=== PATIENT | male | born 1985 | race African-American/Black ===

== ENCOUNTER 2018-06-04 14:49 | Inpatient (IN) | payer OTHER ==
[2018-06-04 17:45] VITALS: BMI 22.7
--- NOTE | 2018-06-04 18:20 | HP ---
CIWA Score Nausea/Vomitin-No Nausea/No Vomiting Muscle Tremors: 1-None Visible, but [place] Anxiety: 3 Agitation: 2 Paroxysmal Sweats: 2 Orientation: 0-Oriented Tacttile Disturbances: 1-Very Mild Itch/Numbness Auditory Disturbances: 0-None Visual Disturbances: 0-None Headache: 0-None Present CIWA-Ar Total Score: 9 - Admission Criteria OASAS Guidelines: Admission for Medically Managed Detox: Requires at least one of the followin. CIWA greater than 12 2. Seizures within the past 24 hours 3. Delirium tremens within the past 24 hours 4. Hallucinations within the past 24 hours 5. Acute intervention needed for co occurring medical disorder 6. Acute intervention needed for co occurring psychiatric disorder 7. Severe withdrawal that cannot be handled at a lower level of care (continued vomiting, continued diarrhea, abnormal vital signs) requiring intravenous medication and/or fluids 8. Patient presents the following: Acute intervention needed for co-occurring med or psych disorder Admission Criteria Met: Admission criteria met Admission ROS S - HPI Chief Complaint: " I am tire and I want to really do this" Allergies/Adverse Reactions: Allergies Allergy/AdvReac Type Severity Reaction Status Date / Time No Known Allergies Allergy Verified 06/04/18 17:34 History of Present Illness: 33 yo male with hx of alcohol, cocaine, marijuana, nicotine dependence is here seeking detox, self referred. Reports last detox [facility] 2008. Reports drinking has worsen in the past "couple of months " currently has been [id number] x 40 oz beers + 12 - 13 shot of vodka. Reports unable to take HARRT therapy d/t selling his mediations for "drugs." PMHX: HIV , Anemia Denies psyc hx. Denies hx of seizures or blackouts Denies SI / HI Exam Limitations: No Limitations - Ebola screening Have you traveled outside of the country in the last 21 days: No (N) Have you had contact with anyone from an Ebola affected area: No Do you have a fever: No - Review of Systems Constitutional: Chills, Changes in sleep (no sleep x 3 days) EENT: reports: No Symptoms Reported Respiratory: reports: No Symptoms reported Cardiac: reports: No Symptoms Reported GI: reports: Poor Appetite, Poor Fluid Intake : reports: No Symptoms Reported Musculoskeletal: reports: Back Pain Integumentary: reports: Dryness Neuro: reports: Weakness Endocrine: reports: Increased Thirst Hematology: reports: See HPI, Anemia Psychiatric: reports: Orientated x3, Agitated Other Systems: Reviewed and Negative Patient History - Patient Medical History Hx Anemia: Yes Hx Asthma: No Hx Chronic Obstructive Pulmonary Disease (COPD): No Hx Cancer: No Hx Cardiac Disorders: No Hx Congestive Heart Failure: No Hx Hypertension: No Hx Hypercholesterolemia: No Hx Pacemaker: No HX Cerebrovascular Accident: No Hx Seizures: No Hx Dementia: No Hx Diabetes: No Hx Gastrointestinal Disorders: No Hx Sexually Transmitted Disorders: No Hx Renal Disease (ESRD): Yes (One kidney, kidney disease? ) Hx Thyroid Disease: No Hx Human Immunodeficiency Virus (HIV): Yes (born with HIV ) Hx Hepatitis C: No Hx Depression: No Hx Suicide Attempt: No Hx Bipolar Disorder: No Hx Schizophrenia: No - Patient Surgical History Past Surgical History: No - PPD History Previous Implant?: No Documented Results: Negative w/o proof PPD to be Administered?: Yes - Smoking Cessation Smoking history: Current every day smoker Aproximately how many cigarettes per day: 20 Hx Chewing Tobacco Use: No Initiated information on smoking cessation: Yes 'Breaking Loose' booklet given: 06/04/18 - Substance & Tx. History Hx Alcohol Use: Yes Hx Substance Use: Yes Substance Use Type: Alcohol, Cocaine, Marijuana Hx Substance Use Treatment: Yes (Last detox [facility] 2008) - Substances abused Alcohol Substance route: Oral Frequency: 3-6 times per week Amount used: 10 x 40 oz beers + 12 - 13 shot of vodka Age of first use: 19 (been drinking this amount "months ago") Date of last use: 06/04/18 Cocaine Substance route: Inhalation Frequency: 3-6 times per week Amount used: 4 bags or more Age of first use: 19 Date of last use: 06/02/18 Marijuana/Hashish Substance route: Smoking Frequency: Daily Amount used: ' a lot' 50 to 60 dollars worth Age of first use: 19 Date of last use: 06/02/18 Family Disease History - Family Disease History Family Disease History: Diabetes: Grandparent (, CKD, dialysis), Other: Grandparent Admission Physical Exam BHS - Vital Signs Vital Signs: Vital Signs - 24 hr 06/04/18 17:33 Temperature 99.5 F Pulse Rate 98 H Respiratory 20 Rate Blood Pressure 116/76 - Physical General Appearance: Yes: Disheveled, Thin, Irritable, Anxious HEENTM: Yes: EOMI, Hearing grossly Normal, Normal ENT Inspection, Pharynx Normal , Tm's normal, Other (cheilitis) Respiratory: Yes: Chest Non-Tender, Lungs Clear, Normal Breath Sounds, No Respiratory Distress, No Accessory Muscle Use Neck: Yes: Within Normal Limits Breast: Yes: Breast Exam Deferred Cardiology: Yes: Regular Rhythm, Regular Rate Abdominal: Yes: Normal Bowel Sounds, Non Tender, Flat, Soft Genitourinary: Yes: Within Normal Limits Back: Yes: Normal Inspection Musculoskeletal: Yes: full range of Motion, Gait Steady, Pelvis Stable, Back pain Extremities: Yes: Normal Capillary Refill, Normal Inspection, Normal Range of Motion, Non-Tender 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, Fully Oriented, Alert, Motor Strength 5/5, Depressed Affect Integumentary: Yes: Normal Color, Warm, Pale, Diaphoresis Lymphatic: Yes: Within Normal Limits - Diagnostic (1) Alcohol dependence with uncomplicated withdrawal Current Visit: Yes Status: Acute (2) Nicotine dependence Current Visit: Yes Status: Acute (3) Cocaine dependence Current Visit: Yes Status: Acute Qualifiers: Substance use status: uncomplicated Qualified Code(s): F14.20 - Cocaine dependence, uncomplicated (4) Human immunodeficiency virus (HIV) disease Current Visit: Yes Status: Chronic Cleared for Admission [facility] - Detox or Rehab [facility] Level of Care: Medically Managed (ATIVAN) Breathalyzer - Breathalyzer Breathalyzer: 0 Urine Drug Screen - Test Device Lot number: [id number] Expiration date: 05/25/19 - Control Is test valid?: Yes - Results Drug screen NEGATIVE: No Urine drug screen results: THC-Marijuana, HARRY-Cocaine Inpatient Rehab Admission - Rehab Decision to Admit Inpatient rehab admission?: No
[2018-06-04] MEDS ORDERED: ACETAMINOPHEN 325 MG TABLET (FP) PO PRN (18:38)
[2018-06-04] MEDS ORDERED: BISMUTH SUBSALICYLATE 524 MG/30 ML UD PO PRN (18:38)
[2018-06-04] MEDS ORDERED: MAG HYDROX/AL HYDROX/SIMETH 30 ML UNIT-DOSE CUP PO PRN (18:38)
[2018-06-04] MEDS ORDERED: MENTHOL/PHENOL 1 EACH UD MM PRN (18:38)
[2018-06-04] MEDS ORDERED: NICOTINE POLACRILEX 2 MG GUM BUC PRN (18:38)
[2018-06-04] MEDS ORDERED: MAGNESIUM CITRATE 300 ML BOTTLE PO PRN (18:38)
[2018-06-04] MEDS ORDERED: hydrOXYzine PAMOATE 25 MG CAPSULE (FP) PO PRN (18:38)
[2018-06-04] MEDS ORDERED: LORazepam 1 MG TABLET PO PRN (18:38)
[2018-06-04] MEDS ORDERED: MELATONIN 5 MG TABLETS PO PRN (18:38)
[2018-06-04] MEDS ORDERED: METHOCARBAMOL 500 MG TABLET PO PRN (18:38)
[2018-06-04] MEDS ORDERED: IBUPROFEN 400 MG TABLET (FP) PO PRN (18:38)
[2018-06-04] MEDS ORDERED: MAGNESIUM HYDROX 2400MG/30ML ORAL SUSPENSION 30 ML CUP PO PRN (18:38)
[2018-06-04] MEDS: THIAMINE HCL 100 MG TABLET (FP) PO SCH (22:48)
[2018-06-04] MEDS: LORazepam 2 MG TABLET PO SCH (22:48)
[2018-06-05] MEDS: LORazepam 2 MG TABLET PO SCH ×3 (05:30→18:33)
[2018-06-05] MEDS: PRENATAL VITAMINS W/ FOLIC ACID TABLET (FP) PO SCH (10:15)
[2018-06-05] MEDS: NICOTINE 21 MG/24 HOURS TOPICAL PATCH TD SCH (10:16)
[2018-06-05 10:20] LABS: HEMATOCRIT 24.4 % (35.4-49); HEMOGLOBIN 8.4 GM/dL (11.7-16.9); MCHC 34.4 g/dl (32.0-35.9); MEAN PLT VOLUME 9.7 fl (7.5-11.1); PLATELET COUNT 183 K/MM3 (134-434); RBC 2.46 M/mm3 (4.00-5.60); RDW 13.2 % (11.9-15.9); WHITE BLOOD COUNT 3.7 K/mm3 (4.0-10.0)
[2018-06-05 10:21] LABS: ALBUMIN 2.6 g/dl (3.4-5.0); ALK PHOS 85 U/L (45-117); ANION GAP 5 MMOL/L (8-16); BILIRUBIN,TOTAL 0.5 mg/dL (0.2-1); BLOOD UREA NITROGEN 22 mg/dL (7-18); CHLORIDE 108 mmol/L (98-107); CO2 27 mmol/L (21-32); CREATININE 1.8 mg/dL (0.55-1.3); GLUCOSE,RANDOM 77 mg/dL (74-106); POTASSIUM 4.6 mmol/L (3.5-5.1); SGOT/AST 39 U/L (15-37); SGPT/ALT 19 U/L (13-61); SODIUM 139 mmol/L (136-145); TOT PROT 8.3 g/dl (6.4-8.2)
[2018-06-05] MEDS: ACETAMINOPHEN 325 MG TABLET (FP) PO PRN (11:51)
--- NOTE | 2018-06-05 13:54 | PN ---
S CIWA - CIWA Score Nausea/Vomitin-Mild Nausea/No Vomiting Muscle Tremors: 2 Anxiety: 1-Mildly Anxious Agitation: 2 Paroxysmal Sweats: 1-Minimal Palms Moist Orientation: 1-Uncertain about Date Tacttile Disturbances: 0-None Auditory Disturbances: 0-None Visual Disturbances: 0-None Headache: 0-None Present CIWA-Ar Total Score: 8 BHS Progress Note (SOAP) Subjective: tremor restlessness trouble sleep at night Objective: 06/05/18 13:53 Vital Signs Temperature 98.1 F 06/05/18 09:11 Pulse Rate 96 H 06/05/18 09:11 Respiratory Rate 16 06/05/18 09:11 Blood Pressure 120/74 06/05/18 09:11 O2 Sat by Pulse Oximetry (%) Laboratory Last Values WBC 3.7 K/mm3 (4.0-10.0) L 06/05/18 07:00 RBC 2.46 M/mm3 (4.00-5.60) L 06/05/18 07:00 Hgb 8.4 GM/dL (11.7-16.9) L 06/05/18 07:00 Hct 24.4 % (35.4-49) L 06/05/18 07:00 MCV 99.0 fl (80-96) H 06/05/18 07:00 MCH 34.0 pg (25.7-33.7) H 06/05/18 07:00 MCHC 34.4 g/dl (32.0-35.9) 06/05/18 07:00 RDW 13.2 % (11.9-15.9) 06/05/18 07:00 Plt Count 183 K/MM3 (134-434) 06/05/18 07:00 MPV 9.7 fl (7.5-11.1) 06/05/18 07:00 Sodium 139 mmol/L (136-145) 06/05/18 07:00 Potassium 4.6 mmol/L (3.5-5.1) 06/05/18 07:00 Chloride 108 mmol/L (98-107) H 06/05/18 07:00 Carbon Dioxide 27 mmol/L (21-32) 06/05/18 07:00 Anion Gap 5 MMOL/L (8-16) L 06/05/18 07:00 BUN 22 mg/dL (7-18) H 06/05/18 07:00 Creatinine 1.8 mg/dL (0.55-1.3) H 06/05/18 07:00 Creat Clearance w eGFR 44.23 (>60) 06/05/18 07:00 Random Glucose 77 mg/dL (74-106) 06/05/18 07:00 Calcium 8.0 mg/dL (8.5-10.1) L 06/05/18 07:00 Total Bilirubin 0.5 mg/dL (0.2-1) 06/05/18 07:00 AST 39 U/L (15-37) H 06/05/18 07:00 ALT 19 U/L (13-61) 06/05/18 07:00 Alkaline Phosphatase 85 U/L (45-117) 06/05/18 07:00 Total Protein 8.3 g/dl (6.4-8.2) H 06/05/18 07:00 Albumin 2.6 g/dl (3.4-5.0) L 06/05/18 07:00 RPR Titer Nonreactive (NONREACTIVE) 06/05/18 07:00 lab noted Assessment: 06/05/18 13:53 withdrawal sx Plan: continue detox
--- NOTE | 2018-06-05 16:39 | EKG ---
Test Reason : Blood Pressure : / mmHG Vent. Rate : 089 BPM Atrial Rate : 089 BPM P-R Int : 164 ms QRS Dur : 076 ms QT Int : 356 ms P-R-T Axes : 063 056 058 degrees QTc Int : 433 ms NORMAL SINUS RHYTHM NORMAL ECG NO PREVIOUS ECGS AVAILABLE Confirmed by CARIDAD GUZMAN, VLADIMIR ([id number]) on 06/05/2018 4:38:52 PM Referred By: Confirmed By:VLADIMIR MCLEAN MD
[2018-06-05] MEDS: LORazepam 1 MG TABLET PO SCH (22:38)
[2018-06-05] MEDS: THIAMINE HCL 100 MG TABLET (FP) PO SCH (22:38)
[2018-06-06] MEDS: LORazepam 1 MG TABLET PO SCH ×3 (06:21→17:39)
[2018-06-06] MEDS: PRENATAL VITAMINS W/ FOLIC ACID TABLET (FP) PO SCH (10:37)
[2018-06-06] MEDS: ACETAMINOPHEN 325 MG TABLET (FP) PO PRN (10:37)
[2018-06-06] MEDS: NICOTINE 21 MG/24 HOURS TOPICAL PATCH TD SCH (10:38)
--- NOTE | 2018-06-06 16:31 | PN ---
[facility] CIWA - CIWA Score Nausea/Vomitin-No Nausea/No Vomiting Muscle Tremors: 2 Anxiety: 3 Agitation: 3 Paroxysmal Sweats: 2 Orientation: 0-Oriented Tacttile Disturbances: 0-None Auditory Disturbances: 0-None Visual Disturbances: 0-None Headache: 0-None Present CIWA-Ar Total Score: 10 S Progress Note (SOAP) Subjective: Sweating, Anxious, Tremors, Interrupted Sleep. Objective: PATIENT A & O X 3, OBSERVED AMBULATING ON UNIT. IN NO ACUTE DISTRESS. 06/06/18 16:30 Vital Signs Temperature 98.0 F 06/06/18 13:37 Pulse Rate 102 H 06/06/18 13:37 Respiratory Rate 20 06/06/18 13:37 Blood Pressure 117/74 06/06/18 13:37 O2 Sat by Pulse Oximetry (%) Laboratory Tests 06/05/18 06/05/18 06/05/18 07:00 07:00 07:00 WBC 3.7 L RBC 2.46 L Hgb 8.4 L Hct 24.4 L MCV 99.0 H MCH 34.0 H MCHC 34.4 RDW 13.2 Plt Count 183 MPV 9.7 Sodium 139 Potassium 4.6 Chloride 108 H Carbon Dioxide 27 Anion Gap 5 L BUN 22 H Creatinine 1.8 H Creat Clearance w eGFR 44.23 Random Glucose 77 Calcium 8.0 L Total Bilirubin 0.5 AST 39 H ALT 19 Alkaline Phosphatase 85 Total Protein 8.3 H Albumin 2.6 L RPR Titer Nonreactive LABS NOTED. PATIENT REPORTED HISTORY OF ANEMIA ON ADMISSION TO DETOX. 06/06/18 16:35 Assessment: 06/06/18 16:36 WITHDRAWAL SYMPTOMS. ANEMIA. HYPOCALCEMIA. Plan: CONTINUED ETOX. OSCAL, 500 MG PO BID FOR HYPOCALCEMIA. PATIENT IS CURRENTLY RECEIVING DAILY MVI CONTAINING B VITAMINS AND IRON WHILE ADMITTED FOR DETOX. REPEAT CBC TOMORROW AM FOR ANEMIA NOTED ON ADMISSION CBC. D/C IBUPROFEN AND MAGNESIUM-CONTAINING MEDS. FOR ABNORMAL ADMISSION RENAL LAB VALUES.
[2018-06-06] MEDS: LORazepam 0.5 MG TABLET PO SCH (22:44)
[2018-06-06] MEDS: CALCIUM 500MG/VIT-D 200 UNITS COMBO TABLET (FP) PO SCH (22:44)
[2018-06-06] MEDS: THIAMINE HCL 100 MG TABLET (FP) PO SCH (22:44)
[2018-06-06] MEDS ORDERED: LORazepam 0.5 MG TABLET PO PRN (23:00)
[2018-06-07] MEDS: LORazepam 0.5 MG TABLET PO SCH ×4 (05:54→22:42)
[2018-06-07] MEDS: NICOTINE 21 MG/24 HOURS TOPICAL PATCH TD SCH (10:31)
[2018-06-07] MEDS: PRENATAL VITAMINS W/ FOLIC ACID TABLET (FP) PO SCH (10:31)
[2018-06-07] MEDS: CALCIUM 500MG/VIT-D 200 UNITS COMBO TABLET (FP) PO SCH ×2 (10:31→22:42)
--- NOTE | 2018-06-07 14:19 | PN ---
BHS Progress Note (SOAP) Subjective: Anxious, Restless. Objective: PATIENT A & O X 3, OBSERVED AMBULATING ON UNIT. IN NO ACUTE DISTRESS. 06/07/18 14:16 Vital Signs Temperature 100.1 F H 06/07/18 10:25 Pulse Rate 100 H 06/07/18 10:25 Respiratory Rate 18 06/07/18 10:25 Blood Pressure 129/75 06/07/18 10:25 O2 Sat by Pulse Oximetry (%) Laboratory Tests 06/05/18 06/05/18 06/05/18 07:00 07:00 07:00 WBC 3.7 L RBC 2.46 L Hgb 8.4 L Hct 24.4 L MCV 99.0 H MCH 34.0 H MCHC 34.4 RDW 13.2 Plt Count 183 MPV 9.7 Sodium 139 Potassium 4.6 Chloride 108 H Carbon Dioxide 27 Anion Gap 5 L BUN 22 H Creatinine 1.8 H Creat Clearance w eGFR 44.23 Random Glucose 77 Calcium 8.0 L Total Bilirubin 0.5 AST 39 H ALT 19 Alkaline Phosphatase 85 Total Protein 8.3 H Albumin 2.6 L RPR Titer Nonreactive LABS NOTED. PATIENT REFUSED TO HAVE REPEAT CBC DRAWN EARLIER IN AM TODAY. PATIENT REPORTS HISTORY OF ANEMIA ,LIKELY DUE TO HISTORY OF HIV. 06/07/18 14:18 Assessment: 06/07/18 14:17 WITHDRAWAL SYMPTOMS. ANEMIA. LEUKOPENIA. HYPOCALCEMIA. 06/07/18 14:18 Plan: CONTINUE DETOX. CONTINUE OSCAL BID. PATIENT ADVISED TO FOLLOW-UP WITH HIV MEDICAL PROVIDER AFTER DISCHARGE FROM DETOX UNIT FOR GENERAL MEDICAL ASSESSMENT AND FOR ANEMIA AND LEUKOPENIA NOTED ON DETOX ADMISSION LABORATORY ASSESSMENT. PATIENT VERBALIZED UNDERSTANDING OF RECOMMENDATION. COPIES OF RESULTS OF ALL LABS DRAWN WHILE ADMITTED FOR DETOX GIVEN TO PATIENT AT TIME OF DISCHARGE FROM DETOX UNIT.
[2018-06-07] MEDS: THIAMINE HCL 100 MG TABLET (FP) PO SCH (22:42)
[2018-06-08 09:33] VITALS: BP 102/67; PULSE 103; TEMP 99.4
[2018-06-08] MEDS: CALCIUM 500MG/VIT-D 200 UNITS COMBO TABLET (FP) PO SCH (10:42)
[2018-06-08] MEDS: PRENATAL VITAMINS W/ FOLIC ACID TABLET (FP) PO SCH (10:42)
[2018-06-08] MEDS: NICOTINE 21 MG/24 HOURS TOPICAL PATCH TD SCH (10:42)
--- NOTE | 2018-06-08 15:10 | DS ---
[facility] Detox Discharge Summary Admission Date: 06/04/18 Discharge Date: 06/08/18 - History Present History: Alcohol Dependence Additional Comments: 33 years old male admitted on 06/04/18 for alcohol withdrawal stabilization completed detox regimen [facility] Pertinent Past History: patient agrees to return tomorrow for [facility] - Physical Exam Results Vital Signs: Vital Signs Temperature 99.4 F 06/08/18 09:33 Pulse Rate 103 H 06/08/18 09:33 Respiratory Rate 18 06/08/18 09:33 Blood Pressure 102/67 06/08/18 09:33 O2 Sat by Pulse Oximetry (%) Pertinent Admission Physical Exam Findings: alcohol withdrawal sx Laboratory Last Values WBC 3.7 K/mm3 (4.0-10.0) L 06/05/18 07:00 RBC 2.46 M/mm3 (4.00-5.60) L 06/05/18 07:00 Hgb 8.4 GM/dL (11.7-16.9) L 06/05/18 07:00 Hct 24.4 % (35.4-49) L 06/05/18 07:00 MCV 99.0 fl (80-96) H 06/05/18 07:00 MCH 34.0 pg (25.7-33.7) H 06/05/18 07:00 MCHC 34.4 g/dl (32.0-35.9) 06/05/18 07:00 RDW 13.2 % (11.9-15.9) 06/05/18 07:00 Plt Count 183 K/MM3 (134-434) 06/05/18 07:00 MPV 9.7 fl (7.5-11.1) 06/05/18 07:00 Sodium 139 mmol/L (136-145) 06/05/18 07:00 Potassium 4.6 mmol/L (3.5-5.1) 06/05/18 07:00 Chloride 108 mmol/L (98-107) H 06/05/18 07:00 Carbon Dioxide 27 mmol/L (21-32) 06/05/18 07:00 Anion Gap 5 MMOL/L (8-16) L 06/05/18 07:00 BUN 22 mg/dL (7-18) H 06/05/18 07:00 Creatinine 1.8 mg/dL (0.55-1.3) H 06/05/18 07:00 Creat Clearance w eGFR 44.23 (>60) 06/05/18 07:00 Random Glucose 77 mg/dL (74-106) 06/05/18 07:00 Calcium 8.0 mg/dL (8.5-10.1) L 06/05/18 07:00 Total Bilirubin 0.5 mg/dL (0.2-1) 06/05/18 07:00 AST 39 U/L (15-37) H 06/05/18 07:00 ALT 19 U/L (13-61) 06/05/18 07:00 Alkaline Phosphatase 85 U/L (45-117) 06/05/18 07:00 Total Protein 8.3 g/dl (6.4-8.2) H 06/05/18 07:00 Albumin 2.6 g/dl (3.4-5.0) L 06/05/18 07:00 RPR Titer Nonreactive (NONREACTIVE) 06/05/18 07:00 lab noted - Treatment Hospital Course: Detox Protocol Followed, Detoxed Safely, Responded well, Discharged Condition Good, Rehab Referral Accepted Patient has Accepted a Rehab Referral to: [facility] - Medication Discharge Medications: Ambulatory Orders Darunavir/Cobicistat [Prezcobix 800 mg-150 mg Tablet] 1 tablet PO DAILY Emtricitabine/Tenofovir [Truvada -] 1 tablet PO DAILY 06/04/18 - Diagnosis (1) Alcohol dependence with uncomplicated withdrawal Status: Acute (2) Nicotine dependence Status: Acute Qualifiers: Nicotine product type: cigarettes Substance use status: in withdrawal Qualified Code(s): F17.213 - Nicotine dependence, cigarettes, with withdrawal (3) Human immunodeficiency virus (HIV) disease Status: Chronic - AMA Did Patient Leave Against Medical Advice: No
== END 2018-06-08 09:45 | disposition home or self-care (01) | DRG 774 ==
LOC: YASAS 14:49 → Y3N 19:09
PROVIDERS: ADMIT Surgery; ATTEND Surgery
PROC: HZ2ZZZZ Detoxification Services for Substance Abuse Treatment (ICD-10-PCS; principal; 2018-06-04)
DX: F10.230 Alcohol dependence with withdrawal, uncomplicated (principal); F14.20 Cocaine dependence, uncomplicated; F12.20 Cannabis dependence, uncomplicated; F17.213 Nicotine dependence, cigarettes, with withdrawal; Z21 Asymptomatic human immunodeficiency virus [HIV] infection status; D64.9 Anemia, unspecified; D72.819 Decreased white blood cell count, unspecified; E83.51 Hypocalcemia; Z59.0 Homelessness
CPT/HCPCS: 36415; 80053; 85027; 86593; 93005; 93010

== ENCOUNTER 2018-09-05 14:46 | Inpatient (IN) | payer OTHER ==
[2018-09-05 16:38] VITALS: BMI 22.7
--- NOTE | 2018-09-05 17:55 | HP ---
"CIWA Score Nausea/Vomitin-No Nausea/No Vomiting Muscle Tremors: 3 Anxiety: 4-Mod. Anxious/Guarded Agitation: 3 Paroxysmal Sweats: 2 Orientation: 1-Uncertain about Date Tacttile Disturbances: 0-None Auditory Disturbances: 0-None Visual Disturbances: 0-None Headache: 0-None Present CIWA-Ar Total Score: 13 - Admission Criteria OASAS Guidelines: Admission for Medically Managed Detox: Requires at least one of the followin. CIWA greater than 12 2. Seizures within the past 24 hours 3. Delirium tremens within the past 24 hours 4. Hallucinations within the past 24 hours 5. Acute intervention needed for co occurring medical disorder 6. Acute intervention needed for co occurring psychiatric disorder 7. Severe withdrawal that cannot be handled at a lower level of care (continued vomiting, continued diarrhea, abnormal vital signs) requiring intravenous medication and/or fluids 8. Patient presents the following: CIWA greater than 12 Admission Criteria Met: Admission criteria met Admission ROS [facility] Chief Complaint: Having alcohol withdrawal Allergies/Adverse Reactions: Allergies Allergy/AdvReac Type Severity Reaction Status Date / Time No Known Allergies Allergy Verified 09/05/18 16:28 History of Present Illness: 33 yo presents with alcohol withdrawal and requesting detox. Began drinking immediately after last detox. Alcohol use began at age 19. Currently drinking 2 -5ths vodka daily and beers Cocaine use began at age 19. Marijuana use began at age 19. Nicotine use began at age 18. Smokes approx 1/2 PPD. EK06/04/18 - NSR; Denies hx of seizures, blackouts, overdoses. PMHX: HIV+, Anemia, weight loss. Not currently taking any HIV meds. Encouraged to f/u with PCP afetr discharge. MMHx:Denies depression or other MH problems. Denies thoughts of harming self or others. Search Terms: Owen Rodriguez, 1985 Search Date: 09/05/2018 06:15:44 PM The Drug Utilization Report below displays all of the controlled substance prescriptions, if any, that your patient has filled in the last twelve months. The information displayed on this report is compiled from pharmacy submissions to the Department, and accurately reflects the information as submitted by the pharmacies. This report was requested by: Jessica Gilbert | Reference #: [id number] There are no results for the search terms that you entered. Exam Limitations: No Limitations - Ebola screening Have you traveled outside of the country in the last 21 days: No (N) Have you had contact with anyone from an Ebola affected area: No Have you been sick,other than usual withdrawal symptoms: No (Denies recent exposure to measles) Do you have a fever: No - Review of Systems Constitutional: Unintentional Wgt. Loss (fr/t to health) EENT: reports: Dental Problems (Poor dentition. Chews andswallows ok) Respiratory: reports: No Symptoms reported Cardiac: reports: No Symptoms Reported GI: reports: No Symptoms Reported : reports: Frequency (5-6 x / night nocturia), Other (States only has one kidney since ) Musculoskeletal: reports: No Symptoms Reported Integumentary: reports: No Symptoms Reported Neuro: reports: No Symptoms reported Endocrine: reports: Increased Thirst Hematology: reports: Anemia (Low HGB/HCT;), Other (HIV (+)) Psychiatric: reports: No Sypmtoms Reported, other Patient History - Patient Medical History Hx Anemia: Yes Hx Asthma: No Hx Chronic Obstructive Pulmonary Disease (COPD): No Hx Cancer: No Hx Cardiac Disorders: No Hx Congestive Heart Failure: No Hx Hypertension: No Hx Hypercholesterolemia: No Hx Pacemaker: No HX Cerebrovascular Accident: No Hx Seizures: No Hx Dementia: No Hx Diabetes: No Hx Gastrointestinal Disorders: No Hx Genitourinary Disorders: No Hx Sexually Transmitted Disorders: No Hx Renal Disease (ESRD): Yes (One kidney, kidney disease? ) Hx Thyroid Disease: No Hx Human Immunodeficiency Virus (HIV): Yes (born with HIV ) Hx Hepatitis C: No Hx Depression: No Hx Suicide Attempt: No Hx Bipolar Disorder: No Hx Schizophrenia: No - Patient Surgical History Past Surgical History: No Hx Neurologic Surgery: No Hx Cataract Extraction: No Hx Cardiac Surgery: No Hx Lung Surgery: No Hx Breast Surgery: No Hx Breast Biopsy: No Hx Abdominal Surgery: No Hx Appendectomy: No Hx Cholecystectomy: No Hx Genitourinary Surgery: No Hx Section: No Hx Orthopedic Surgery: No Anesthesia Reaction: No - PPD History Previous Implant?: Yes Documented Results: Negative w/proof Implanted On Prior R Admission?: Yes Date: 06/06/18 PPD to be Administered?: No - Smoking Cessation Smoking history: Current every day smoker Have you smoked in the past 12 months: Yes Aproximately how many cigarettes per day: 10 Hx Chewing Tobacco Use: No Initiated information on smoking cessation: Yes 'Breaking Loose' booklet given: 09/05/18 - Substance & Tx. History Hx Alcohol Use: Yes Hx Substance Use: Yes Substance Use Type: Alcohol, Cocaine, Marijuana Hx Substance Use Treatment: Yes (detox) - Substances abused Alcohol Substance route: Oral Frequency: 3-6 times per week Amount used: 10 x 40 oz beers + 12 - 13 shot of vodka Age of first use: 19 Date of last use: 09/05/18 Cocaine Substance route: Inhalation Frequency: 3-6 times per week Amount used: 4 bags or more Age of first use: 19 Date of last use: 09/04/18 Marijuana/Hashish Substance route: Smoking Frequency: Daily Amount used: ' a lot' 50 to 60 dollars worth Age of first use: 19 Date of last use: 09/05/18 Family Disease History - Family Disease History Family Disease History: Diabetes: Grandparent (, CKD, dialysis), Other: Grandparent Admission Physical Exam [facility] - Vital Signs Vital Signs: Vital Signs - 24 hr 09/05/18 16:33 Temperature 99.9 F H Pulse Rate 88 Respiratory 16 Rate Blood Pressure 97/58 L - Physical General Appearance: Yes: Mild Distress, Tremorous, Irritable, Sweating ( Increased facial moisture), Anxious HEENTM: Yes: EOMI, Hearing grossly Normal, Normocephalic, Normal Voice, YOVANI, Pharynx Normal Respiratory: Yes: Lungs Clear, Normal Breath Sounds, Other (Noisy cough - producvtive whitish phlegm) Neck: Yes: No masses,lesions,Nodules, Supple Breast: Yes: Breast Exam Deferred Cardiology: Yes: Regular Rhythm, Regular Rate, S1, S2 Abdominal: Yes: Non Tender, Flat, Soft, Increased Bowel Sounds Genitourinary: Yes: Frequency Back: Yes: Within Normal Limits Musculoskeletal: Yes: full range of Motion, Gait Steady Extremities: Yes: Normal Capillary Refill, Normal Range of Motion, Tremors 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, 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, Motor Strength 5/5, Other ( Anxious, defensive speech) Integumentary: Yes: Normal Color, Warm Lymphatic: Yes: Within Normal Limits - Diagnostic (1) Alcohol dependence with uncomplicated withdrawal Current Visit: Yes Status: Acute (2) Anemia Current Visit: Yes Status: Chronic Qualifiers: Anemia type: unspecified type Qualified Code(s): D64.9 - Anemia, unspecified (3) Cocaine dependence Current Visit: Yes Status: Chronic Qualifiers: Substance use status: uncomplicated Qualified Code(s): F14.20 - Cocaine dependence, uncomplicated (4) Nicotine dependence Current Visit: Yes Status: Chronic Qualifiers: Nicotine product type: cigarettes Substance use status: in withdrawal Qualified Code(s): F17.213 - Nicotine dependence, cigarettes, with withdrawal (5) Human immunodeficiency virus (HIV) disease Current Visit: Yes Status: Chronic (6) Cannabis dependence, uncomplicated Current Visit: Yes Status: Chronic (7) Cough Current Visit: Yes Status: Chronic Cleared for Admission S - Detox or Rehab [facility] Level of Care: Medically Managed Detox Regimen/Protocol: Valium Claeared for Rehab Admission: No Breathalyzer - Breathalyzer Breathalyzer: 0 Urine Drug Screen - Test Device Lot number: [id number] Expiration date: 05/25/19 - Control Is test valid?: Yes - Results Drug screen NEGATIVE: No Urine drug screen results: THC-Marijuana, HARRY-Cocaine Inpatient Rehab Admission - Rehab Decision to Admit Inpatient rehab admission?: No"
[2018-09-05] MEDS ORDERED: MAGNESIUM HYDROX 2400MG/30ML ORAL SUSPENSION 30 ML CUP PO PRN (18:24)
[2018-09-05] MEDS ORDERED: METHOCARBAMOL 500 MG TABLET PO PRN (18:24)
[2018-09-05] MEDS ORDERED: hydrOXYzine PAMOATE 25 MG CAPSULE (FP) PO PRN (18:24)
[2018-09-05] MEDS ORDERED: BISMUTH SUBSALICYLATE 524 MG/30 ML UD PO PRN (18:24)
[2018-09-05] MEDS ORDERED: MELATONIN 5 MG TABLETS PO PRN (18:24)
[2018-09-05] MEDS ORDERED: MAGNESIUM CITRATE 300 ML BOTTLE PO PRN (18:24)
[2018-09-05] MEDS ORDERED: MAG HYDROX/AL HYDROX/SIMETH 30 ML UNIT-DOSE CUP PO PRN (18:24)
[2018-09-05] MEDS ORDERED: IBUPROFEN 400 MG TABLET (FP) PO PRN (18:24)
[2018-09-05] MEDS ORDERED: ACETAMINOPHEN 325 MG TABLET (FP) PO PRN ×2 (18:24)
[2018-09-05] MEDS ORDERED: MENTHOL/PHENOL 1 EACH UD MM PRN (18:24)
[2018-09-05] MEDS: guaiFENesin 200 MG/10 ML 10 ML UNIT-DOSE CUPS PO SCH (19:31)
[2018-09-05] MEDS: diazePAM 5 MG TABLET PO PRN (19:32)
[2018-09-05] MEDS: THIAMINE HCL 100 MG TABLET (FP) PO SCH (22:25)
[2018-09-05] MEDS: diazePAM 5 MG TABLET PO SCH (22:25)
[2018-09-06] MEDS: guaiFENesin 200 MG/10 ML 10 ML UNIT-DOSE CUPS PO SCH ×4 (01:19→17:44)
[2018-09-06] MEDS: diazePAM 5 MG TABLET PO SCH ×3 (05:53→23:30)
[2018-09-06] MEDS: NICOTINE 14 MG/24 HOURS TOPICAL PATCH TD SCH (11:00)
[2018-09-06] MEDS: PRENATAL VITAMINS W/ FOLIC ACID TABLET (FP) PO SCH (11:00)
[2018-09-06 12:00] LABS: EPI CELLS 0.5 /HPF (0-5/HPF); HYALINE CASTS 3 /lpf (0-8); PH,URINE 5.5 (5.0-8.0); URINE APPEARANCE CLEAR; URINE BACTERIA 5.6 /hpf (NEGATIVE); URINE BILIRUBIN NEGATIVE (NEGATIVE); URINE COLOR YELLOW; URINE GLUCOSE (UA) NEGATIVE (NEGATIVE); URINE KETONE NEGATIVE (NEGATIVE); URINE LEUK ESTERASE NEGATIVE (NEGATIVE); URINE NITRITE NEGATIVE (NEGATIVE); URINE PROTEIN 3+ (NEGATIVE); URINE RBC 1 /hpf (0-4); URINE UROBILINOGEN 0.2 mg/dL (0.2-1.0); URINE WBC 1 /hpf (0-5)
--- NOTE | 2018-09-06 13:52 | PN ---
[facility] CIWA - CIWA Score Nausea/Vomitin-No Nausea/No Vomiting Muscle Tremors: None Anxiety: 4-Mod. Anxious/Guarded Agitation: 4-Moderately Restless Paroxysmal Sweats: 3 Orientation: 0-Oriented Tacttile Disturbances: 1-Very Mild Itch/Numbness Auditory Disturbances: 0-None Visual Disturbances: 2-Mild Sensitivity Headache: 0-None Present CIWA-Ar Total Score: 14 S Progress Note (SOAP) Subjective: Anxious, Restless, Sweating. Objective: PATIENT A & O X 3, OBSERVED AMBULATING ON UNIT UNASSISTED. IN NO ACUTE DISTRESS. 09/06/18 13:48 Vital Signs Temperature 97.6 F 09/06/18 09:49 Pulse Rate 116 H 09/06/18 09:49 Respiratory Rate 18 09/06/18 09:49 Blood Pressure 130/76 09/06/18 09:49 O2 Sat by Pulse Oximetry (%) Laboratory Tests 09/06/18 09:10 Urine Color Yellow Urine Appearance Clear Urine pH 5.5 Ur Specific Sarah 1.020 Urine Protein 3+ H Urine Glucose (UA) Negative Urine Ketones Negative Urine Blood Trace Urine Nitrite Negative Urine Bilirubin Negative Urine Urobilinogen 0.2 Ur Leukocyte Esterase Negative Urine WBC (Auto) 1 Urine RBC (Auto) 1 Urine Casts (Auto) 3 U Epithel Cells (Auto) 0.5 Urine Bacteria (Auto) 5.6 ADMISSION UA RESULTS NOTED. PATIENT REFUSED TO HAVE OTHER ADMISSION LABS DRAWN. WILL RE-ORDER AGAIN FOR TOMORROW. 09/06/18 13:51 Assessment: 09/06/18 13:50 WITHDRAWAL SYMPTOMS. PROTEINURIA. 09/06/18 13:51 Plan: CONTINUE DETOX. INCREASE DAILY PO WATER INTAKE. REPEAT UA FOR ELEVATED PROTEIN LEVEL NOTED IN ADMISSION UA RESULTS.
[2018-09-06] MEDS: diazePAM 5 MG TABLET PO PRN (17:44)
[2018-09-06] MEDS: THIAMINE HCL 100 MG TABLET (FP) PO SCH (23:30)
[2018-09-07] MEDS: guaiFENesin 200 MG/10 ML 10 ML UNIT-DOSE CUPS PO SCH ×5 (00:50→23:58)
[2018-09-07] MEDS: diazePAM 5 MG TABLET PO SCH ×2 (06:38→17:30)
[2018-09-07 10:08] LABS: ALBUMIN 2.4 g/dl (3.4-5.0); BILIRUBIN,TOTAL 0.2 mg/dL (0.2-1); CALCIUM 7.9 mg/dL (8.5-10.1); CREATININE 1.5 mg/dL (0.55-1.3); POTASSIUM 4.3 mmol/L (3.5-5.1); TOT PROT 8.1 g/dl (6.4-8.2)
[2018-09-07 10:32] LABS: BASO % 1.2 % (0-2.0); EOS % 3.4 % (0-4.5); HEMATOCRIT 26.2 % (35.4-49); LYMPH % 45.4 % (8-40); MCH 33.8 pg (25.7-33.7); MCHC 34.3 g/dl (32.0-35.9); MEAN CELL VOLUME 98.5 fl (80-96); MEAN PLT VOLUME 10.3 fl (7.5-11.1); RBC 2.66 M/mm3 (4.00-5.60); RDW 13.3 % (11.9-15.9)
[2018-09-07] MEDS: diazePAM 5 MG TABLET PO PRN (10:40)
[2018-09-07] MEDS: NICOTINE 14 MG/24 HOURS TOPICAL PATCH TD SCH (10:41)
[2018-09-07] MEDS: PRENATAL VITAMINS W/ FOLIC ACID TABLET (FP) PO SCH (10:42)
[2018-09-07 10:47] LABS: PLATELET COUNT 165 K/MM3 (134-434)
[2018-09-07 12:13] LABS: EPI CELLS 0.5 /HPF (0-5/HPF); HYALINE CASTS 3 /lpf (0-8); PH,URINE 5.5 (5.0-8.0); URINE APPEARANCE CLEAR; URINE BACTERIA 3.4 /hpf (NEGATIVE); URINE BILIRUBIN NEGATIVE (NEGATIVE); URINE COLOR YELLOW; URINE GLUCOSE (UA) NEGATIVE (NEGATIVE); URINE KETONE NEGATIVE (NEGATIVE); URINE LEUK ESTERASE NEGATIVE (NEGATIVE); URINE NITRITE NEGATIVE (NEGATIVE); URINE PROTEIN 2+ (NEGATIVE); URINE RBC 2 /hpf (0-4); URINE UROBILINOGEN 0.2 mg/dL (0.2-1.0); URINE WBC 1 /hpf (0-5)
[2018-09-07 12:52] LABS: ANISOCYTOSIS 1+; MACROCYTOSIS 1+; OVALOCYTE 1+; TARGET CELLS 1+
[2018-09-07 13:03] LABS: PLATELET ESTIMATE ADEQUATE
--- NOTE | 2018-09-07 13:03 | PN ---
S CIWA - CIWA Score Nausea/Vomitin-Mild Nausea/No Vomiting Muscle Tremors: 3 Anxiety: 2 Agitation: 2 Paroxysmal Sweats: 1-Minimal Palms Moist Orientation: 0-Oriented Tacttile Disturbances: 0-None Auditory Disturbances: 0-None Visual Disturbances: 0-None Headache: 0-None Present CIWA-Ar Total Score: 9 BHS Progress Note (SOAP) Subjective: 33 years old male admitted on 09/05/18 for alcohol withdrawal sx medical history of hiv agrees to return to infectious disease specailist for lab follow up Objective: 09/07/18 13:05 Vital Signs Temperature 97.9 F 09/07/18 09:28 Pulse Rate 87 09/07/18 09:28 Respiratory Rate 18 09/07/18 09:28 Blood Pressure 112/80 09/07/18 09:28 O2 Sat by Pulse Oximetry (%) Laboratory Last Values WBC 3.0 K/mm3 (4.0-10.0) L 09/07/18 07:50 RBC 2.66 M/mm3 (4.00-5.60) L 09/07/18 07:50 Hgb 9.0 GM/dL (11.7-16.9) L 09/07/18 07:50 Hct 26.2 % (35.4-49) L 09/07/18 07:50 MCV 98.5 fl (80-96) H 09/07/18 07:50 MCH 33.8 pg (25.7-33.7) H 09/07/18 07:50 MCHC 34.3 g/dl (32.0-35.9) 09/07/18 07:50 RDW 13.3 % (11.9-15.9) 09/07/18 07:50 Plt Count 165 K/MM3 (134-434) 09/07/18 07:50 MPV 10.3 fl (7.5-11.1) 09/07/18 07:50 Absolute Neuts (auto) 1.3 K/mm3 (1.5-8.0) L 09/07/18 07:50 Neutrophils % 42.0 % (42.8-82.8) L 09/07/18 07:50 Neutrophils % (Manual) 44.3 % (42.8-82.8) 09/07/18 07:50 Band Neutrophils % 0.0 % 09/07/18 07:50 Lymphocytes % 45.4 % (8-40) H 09/07/18 07:50 Lymphocytes % (Manual) 46.4 % (8-40) H 09/07/18 07:50 Monocytes % 8.0 % (3.8-10.2) 09/07/18 07:50 Monocytes % (Manual) 6 % (3.8-10.2) 09/07/18 07:50 Eosinophils % 3.4 % (0-4.5) 09/07/18 07:50 Eosinophils % (Manual) 3.1 % (0-4.5) 09/07/18 07:50 Basophils % 1.2 % (0-2.0) 09/07/18 07:50 Basophils % (Manual) 0.0 % (0-2.0) 09/07/18 07:50 Myelocytes % (Man) 0 % (0-2) 09/07/18 07:50 Promyelocytes % (Man) 0 % (0-2) 09/07/18 07:50 Blast Cells % (Manual) 0 % (0-0) 09/07/18 07:50 Nucleated RBC % 1 % (0-0) H 09/07/18 07:50 Metamyelocytes 0 % (0-2) 09/07/18 07:50 Hypochromia 0 09/07/18 07:50 Platelet Estimate Adequate 09/07/18 07:50 Polychromasia 0 09/07/18 07:50 Poikilocytosis 0 09/07/18 07:50 Anisocytosis 1+ 09/07/18 07:50 Microcytosis 0 09/07/18 07:50 Macrocytosis 1+ 09/07/18 07:50 Target Cells 1+ 09/07/18 07:50 Ovalocytes 1+ 09/07/18 07:50 Sodium 140 mmol/L (136-145) 09/07/18 07:50 Potassium 4.3 mmol/L (3.5-5.1) 09/07/18 07:50 Chloride 112 mmol/L (98-107) H 09/07/18 07:50 Carbon Dioxide 27 mmol/L (21-32) 09/07/18 07:50 Anion Gap 2 MMOL/L (8-16) L 09/07/18 07:50 BUN 21.0 mg/dL (7-18) H 09/07/18 07:50 Creatinine 1.5 mg/dL (0.55-1.3) H 09/07/18 07:50 Est GFR (CKD-EPI)AfAm 70.88 09/07/18 07:50 Est GFR (CKD-EPI)NonAf 61.15 09/07/18 07:50 Random Glucose 86 mg/dL (74-106) 09/07/18 07:50 Calcium 7.9 mg/dL (8.5-10.1) L 09/07/18 07:50 Total Bilirubin 0.2 mg/dL (0.2-1) 09/07/18 07:50 AST 34 U/L (15-37) 09/07/18 07:50 ALT 14 U/L (13-61) 09/07/18 07:50 Alkaline Phosphatase 83 U/L (45-117) 09/07/18 07:50 Total Protein 8.1 g/dl (6.4-8.2) 09/07/18 07:50 Albumin 2.4 g/dl (3.4-5.0) L 09/07/18 07:50 Urine Color Yellow 09/07/18 09:28 Urine Appearance Clear 09/07/18 09:28 Urine pH 5.5 (5.0-8.0) 09/07/18 09:28 Ur Specific [place] 1.019 (1.010-1.035) 09/07/18 09:28 Urine Protein 2+ (NEGATIVE) H 09/07/18 09:28 Urine Glucose (UA) Negative (NEGATIVE) 09/07/18 09:28 Urine Ketones Negative (NEGATIVE) 09/07/18 09:28 Urine Blood Trace (NEGATIVE) 09/07/18 09:28 Urine Nitrite Negative (NEGATIVE) 09/07/18 09:28 Urine Bilirubin Negative (NEGATIVE) 09/07/18 09:28 Urine Urobilinogen 0.2 mg/dL (0.2-1.0) 09/07/18 09:28 Ur Leukocyte Esterase Negative (NEGATIVE) 09/07/18 09:28 Urine WBC (Auto) 1 /hpf (0-5) 09/07/18 09:28 Urine RBC (Auto) 2 /hpf (0-4) 09/07/18 09:28 Urine Casts (Auto) 3 /lpf (0-8) 09/07/18 09:28 U Epithel Cells (Auto) 0.5 /HPF (0-5/HPF) 09/07/18 09:28 Urine Bacteria (Auto) 3.4 /hpf (NEGATIVE) 09/07/18 09:28 RPR Titer Nonreactive (NONREACTIVE) 09/07/18 07:50 lab noted low Ca++ Ca++ supplement Assessment: 09/07/18 13:06 alcohol withdrawal sx Plan: continue alcohol detox
[2018-09-07] MEDS ORDERED: CALCIUM 250MG/VIT-D 125 UNITS 1 COMBO TABLET PO SCH ×2 (13:45→22:00)
[2018-09-07 21:14] VITALS: BP 118/76; PULSE 90; TEMP 97.7
[2018-09-07] MEDS: THIAMINE HCL 100 MG TABLET (FP) PO SCH (23:08)
[2018-09-08] MEDS: guaiFENesin 200 MG/10 ML 10 ML UNIT-DOSE CUPS PO SCH (05:40)
[2018-09-08] MEDS ORDERED: diazePAM 5 MG TABLET PO ONE (06:00)
--- NOTE | 2018-09-08 13:01 | DS ---
[facility] Detox Discharge Summary Admission Date: 09/05/18 Discharge Date: 09/08/18 - History Present History: Alcohol Dependence Additional Comments: 33 years old male admitted on 09/05/18 for alcohol withdrawal sx medical history of HIV treated with truvada prezcobid patient reported doing well with valium detox regimen feeling better today aftercare infectious disease specialist - Physical Exam Results Vital Signs: Vital Signs Temperature 97.7 F 09/07/18 21:12 Pulse Rate 90 09/07/18 21:12 Respiratory Rate 18 09/08/18 06:30 Blood Pressure 118/76 09/07/18 21:12 O2 Sat by Pulse Oximetry (%) Pertinent Admission Physical Exam Findings: alcohol withdrawal sx Laboratory Last Values WBC 3.0 K/mm3 (4.0-10.0) L 09/07/18 07:50 RBC 2.66 M/mm3 (4.00-5.60) L 09/07/18 07:50 Hgb 9.0 GM/dL (11.7-16.9) L 09/07/18 07:50 Hct 26.2 % (35.4-49) L 09/07/18 07:50 MCV 98.5 fl (80-96) H 09/07/18 07:50 MCH 33.8 pg (25.7-33.7) H 09/07/18 07:50 MCHC 34.3 g/dl (32.0-35.9) 09/07/18 07:50 RDW 13.3 % (11.9-15.9) 09/07/18 07:50 Plt Count 165 K/MM3 (134-434) 09/07/18 07:50 MPV 10.3 fl (7.5-11.1) 09/07/18 07:50 Absolute Neuts (auto) 1.3 K/mm3 (1.5-8.0) L 09/07/18 07:50 Neutrophils % 42.0 % (42.8-82.8) L 09/07/18 07:50 Neutrophils % (Manual) 44.3 % (42.8-82.8) 09/07/18 07:50 Band Neutrophils % 0.0 % 09/07/18 07:50 Lymphocytes % 45.4 % (8-40) H 09/07/18 07:50 Lymphocytes % (Manual) 46.4 % (8-40) H 09/07/18 07:50 Monocytes % 8.0 % (3.8-10.2) 09/07/18 07:50 Monocytes % (Manual) 6 % (3.8-10.2) 09/07/18 07:50 Eosinophils % 3.4 % (0-4.5) 09/07/18 07:50 Eosinophils % (Manual) 3.1 % (0-4.5) 09/07/18 07:50 Basophils % 1.2 % (0-2.0) 09/07/18 07:50 Basophils % (Manual) 0.0 % (0-2.0) 09/07/18 07:50 Myelocytes % (Man) 0 % (0-2) 09/07/18 07:50 Promyelocytes % (Man) 0 % (0-2) 09/07/18 07:50 Blast Cells % (Manual) 0 % (0-0) 09/07/18 07:50 Nucleated RBC % 1 % (0-0) H 09/07/18 07:50 Metamyelocytes 0 % (0-2) 09/07/18 07:50 Hypochromia 0 09/07/18 07:50 Platelet Estimate Adequate 09/07/18 07:50 Polychromasia 0 09/07/18 07:50 Poikilocytosis 0 09/07/18 07:50 Anisocytosis 1+ 09/07/18 07:50 Microcytosis 0 09/07/18 07:50 Macrocytosis 1+ 09/07/18 07:50 Target Cells 1+ 09/07/18 07:50 Ovalocytes 1+ 09/07/18 07:50 Sodium 140 mmol/L (136-145) 09/07/18 07:50 Potassium 4.3 mmol/L (3.5-5.1) 09/07/18 07:50 Chloride 112 mmol/L (98-107) H 09/07/18 07:50 Carbon Dioxide 27 mmol/L (21-32) 09/07/18 07:50 Anion Gap 2 MMOL/L (8-16) L 09/07/18 07:50 BUN 21.0 mg/dL (7-18) H 09/07/18 07:50 Creatinine 1.5 mg/dL (0.55-1.3) H 09/07/18 07:50 Est GFR (CKD-EPI)AfAm 70.88 09/07/18 07:50 Est GFR (CKD-EPI)NonAf 61.15 09/07/18 07:50 Random Glucose 86 mg/dL (74-106) 09/07/18 07:50 Calcium 7.9 mg/dL (8.5-10.1) L 09/07/18 07:50 Total Bilirubin 0.2 mg/dL (0.2-1) 09/07/18 07:50 AST 34 U/L (15-37) 09/07/18 07:50 ALT 14 U/L (13-61) 09/07/18 07:50 Alkaline Phosphatase 83 U/L (45-117) 09/07/18 07:50 Total Protein 8.1 g/dl (6.4-8.2) 09/07/18 07:50 Albumin 2.4 g/dl (3.4-5.0) L 09/07/18 07:50 Urine Color Yellow 09/07/18 09:28 Urine Appearance Clear 09/07/18 09:28 Urine pH 5.5 (5.0-8.0) 09/07/18 09:28 Ur Specific [place] 1.019 (1.010-1.035) 09/07/18 09:28 Urine Protein 2+ (NEGATIVE) H 09/07/18 09:28 Urine Glucose (UA) Negative (NEGATIVE) 09/07/18 09:28 Urine Ketones Negative (NEGATIVE) 09/07/18 09:28 Urine Blood Trace (NEGATIVE) 09/07/18 09:28 Urine Nitrite Negative (NEGATIVE) 09/07/18 09:28 Urine Bilirubin Negative (NEGATIVE) 09/07/18 09:28 Urine Urobilinogen 0.2 mg/dL (0.2-1.0) 09/07/18 09:28 Ur Leukocyte Esterase Negative (NEGATIVE) 09/07/18 09:28 Urine WBC (Auto) 1 /hpf (0-5) 09/07/18 09:28 Urine RBC (Auto) 2 /hpf (0-4) 09/07/18 09:28 Urine Casts (Auto) 3 /lpf (0-8) 09/07/18 09:28 U Epithel Cells (Auto) 0.5 /HPF (0-5/HPF) 09/07/18 09:28 Urine Bacteria (Auto) 3.4 /hpf (NEGATIVE) 09/07/18 09:28 RPR Titer Nonreactive (NONREACTIVE) 09/07/18 07:50 lab noted patient agrees to bring in lab report for follow up - Treatment Hospital Course: Detox Protocol Followed, Detoxed Safely, Responded well, Discharged Condition Good, Rehab Referral Accepted Patient has Accepted a Rehab Referral to: infectious disease specialist - Medication Discharge Medications: Ambulatory Orders NK [No Known Home Medication] 09/05/18 - Diagnosis (1) Alcohol dependence with uncomplicated withdrawal Status: Acute (2) Human immunodeficiency virus (HIV) disease Status: Chronic (3) Nicotine dependence Status: Acute Qualifiers: Nicotine product type: cigarettes Substance use status: in withdrawal Qualified Code(s): F17.213 - Nicotine dependence, cigarettes, with withdrawal - AMA Did Patient Leave Against Medical Advice: No
== END 2018-09-08 08:46 | disposition home or self-care (01) | DRG 774 ==
LOC: YASAS 14:46 → Y3N 18:59
PROVIDERS: ADMIT Surgery; ATTEND Surgery
PROC: HZ2ZZZZ Detoxification Services for Substance Abuse Treatment (ICD-10-PCS; principal; 2018-09-05)
DX: F10.230 Alcohol dependence with withdrawal, uncomplicated (principal); F14.20 Cocaine dependence, uncomplicated; F12.20 Cannabis dependence, uncomplicated; F17.213 Nicotine dependence, cigarettes, with withdrawal; Z21 Asymptomatic human immunodeficiency virus [HIV] infection status; E83.51 Hypocalcemia; R80.9 Proteinuria, unspecified; D64.9 Anemia, unspecified; R05 Cough; Z59.0 Homelessness
CPT/HCPCS: 36415; 80053; 81003; 85025; 86593